=== PATIENT | female | born 1995 | race African-American/Black ===

== ENCOUNTER 2017-05-20 06:05 | Emergency (ER) | payer OTHER ==
[~2017-05-20] VITALS: Ht 144.8 cm; Wt 70.9 kg
[2017-05-20 07:14] VITALS: BP 124/65
[2017-05-20 08:16] LABS: CONTROL LINE UCG INT CTR LINE PRESENT; YEAST LIKE CELL URINE AUTO MODERATE
[2017-05-20] MEDS ORDERED: MACR100C43 PO (08:52)
[2017-05-20] MEDS ORDERED: PYRI1TAB5 PO (08:52)
[2017-05-20] MEDS ORDERED: DIFL150T PO (09:15)
== END 2017-05-20 08:57 | disposition home or self-care (01) ==
LOC: M ED 06:05
DX: R31.9 Hematuria, unspecified (principal); N39.0 Urinary tract infection, site not specified; Z84.1 Family history of disorders of kidney and ureter

== ENCOUNTER 2017-07-22 08:59 | Emergency (ER) | payer OTHER ==
[~2017-07-22] VITALS: Ht 144.8 cm; Wt 70.5 kg
[~2017-07-22 08:59] MED LIST: DIFL150T PO; MACR100C43 PO; PYRI1TAB5 PO
[2017-07-22 09:00] VITALS: BP 121/57
[2017-07-22] MEDS ORDERED: CEPHALEXIN 500 MG CAP PO ONE (10:00)
[2017-07-22] MEDS ORDERED: ADACEL/BOOSTRIX VACCINE (DIPHTH/PERTUSS/ACELL/TETANUS)0.5ML SYR (90715) IM ONE (10:00)
[2017-07-22] MEDS ORDERED: IBUPROFEN 800 MG TAB PO ONE (10:00)
[2017-07-22] MEDS ORDERED: IBUP80TA PO (10:02)
[2017-07-22] MEDS ORDERED: KEFL500C17 PO (10:02)
== END 2017-07-22 10:08 | disposition home or self-care (01) ==
LOC: M ED 08:59
DX: S61.215A Laceration without foreign body of left ring finger without damage to nail, initial encounter (principal); W26.0XXA Contact with knife, initial encounter; Y92.89 Other specified places as the place of occurrence of the external cause; Y93.89 Activity, other specified; Y99.8 Other external cause status